=== PATIENT | male | born 1985 | race Caucasian/White ===

== ENCOUNTER → 2017-06-24 | Outpatient (CLI) | payer OTHER ==
--- NOTE | 2017-06-24 09:51 | RAD ---
DATE: 06/24/2017 EXAM: DIGITAL DIAGNOSTIC BILATERAL, BREAST RIGHT HISTORY: Right retroareolar pain, possible lump COMPARISON: None available This study was interpreted with the benefit of Computerized Aided Detection (CAD). The breast parenchyma is primarily fatty replaced. Breast parenchyma level density A. FINDINGS: There is a small focus of asymmetric increased density in the retroareolar region on the right compared to the left. This process extends a short distance laterally. It is streaky and flame shaped in a pattern suggesting gynecomastia. No other unusual breast densities are seen. Benign skin type calcifications are noted. No suspicious microcalcifications are evident. Right breast ultrasound, 06/24/2017: A target ultrasound exam of the right retroareolar region was performed. There is a triangular-shaped area of decreased echogenicity in the right retroareolar region, not present on the left. The appearance is compatible with gynecomastia. IMPRESSION: Mild unilateral gynecomastia on the right. Underlying neoplasm is unlikely. Clinical surveillance is suggested. BI-RADS 3-probably benign findings RECOMMENDED FOLLOW-UP: CLIN FOLLOW UP IMAGING CLINICALLY INDICATED Mammography is a sensitive method for finding small breast cancers, but it does not detect them all and is not a substitute for careful clinical examination. A negative mammogram does not negate a clinically suspicious finding and should not result in delay in biopsying a clinically suspicious abnormality.
== END | disposition home or self-care (01) ==
LOC: MAMMO 08:44
PROVIDERS: ATTEND Student in an Organized Health Care Education/Training Program
DX: N62 Hypertrophy of breast (principal); R92.1 Mammographic calcification found on diagnostic imaging of breast; N64.4 Mastodynia
CPT/HCPCS: 76641; G0204; 77066